=== PATIENT | female | born 1940 | race Caucasian/White ===

== ENCOUNTER → 2018-03-16 | Outpatient (CLI) | payer OTHER ==
[~2018-03-16] MED LIST: IOPAMIDOL (ISOVUE-300) 100 ML BTL ONE
== END ==
LOC: FIMAGING 10:05
PROVIDERS: ATTEND Family Medicine
DX: K57.30 Diverticulosis of large intestine without perforation or abscess without bleeding (principal); K46.9 Unspecified abdominal hernia without obstruction or gangrene; K76.89 Other specified diseases of liver; D25.9 Leiomyoma of uterus, unspecified; D30.00 Benign neoplasm of unspecified kidney
CPT/HCPCS: 74177; Q9967; 74160-PO; 82565-PO

== ENCOUNTER → 2018-04-16 | Outpatient (CLI) | payer OTHER | LOC: BRMIMAGING 10:35 | PROVIDERS: ATTEND Family Medicine | DX: D25.9 Leiomyoma of uterus, unspecified (principal); R93.89 Abnormal findings on diagnostic imaging of other specified body structures | CPT/HCPCS: 76856-PO ==

== ENCOUNTER 2018-07-07 07:03 | Day surgery (SDC) | payer OTHER ==
[2018-07-07] MEDS ORDERED: LR 1,000 ML IV ONE (07:31)
--- NOTE | 2018-07-07 08:01 | PDGENHP ---
History and Physical - Chief Complaint Thickened Endometrial strips - History of Present Illness Jagruti Gordon is a 78 yo pt who I met with in clinic regarding vulvar itching/ irritation and a finding of thickened ES on recent pelvic US - measuring up to 1.2cm. She had not (and still hasn't) had any post-menopausal bleeding. EBX in the clinic returned suggesting fragments of an endometrial polyp - suggested removal to exclude underlying/occult malignancy. History Information - Allergies/Home Medication List Allergies/Adverse Reactions: No Known Allergies Allergy (Verified 07/01/18 11:54) Home Medications: Aspirin 81mg (*) 07/01/18 [Last Taken 07/01/18] Carvedilol BID 07/01/18 [Last Taken 07/07/18] Herbals/Supplements -Info Only 07/01/18 [Last Taken 07/01/18] Losartan Potassium 07/01/18 [Last Taken 07/07/18] Metformin HCl 07/01/18 [Last Taken 07/05/18] Rosuvastatin Calcium 07/01/18 [Last Taken 07/06/18] I have personally reviewed and updated: family history, medical history, social history, surgical history Past Medical History: Hypertension, Dyslipidemia, Diverticulitis, Urinary incontinence - Surgical History Additional surgical history: 2011 knee, x 2 - Family History Additional family history: Sister dx'd with Paget's disease of the vulva this year - Social History Smoking Status: Never smoked Review of Systems Review of Systems: ROS: 10pt was reviewed & negative except for what was stated in HPI & below Physical Exam Physical Exam: Temp Pulse Resp BP Pulse Ox 59 L 14 93 07/07/18 07:47 07/07/18 07:47 07/07/18 07:47 Constitutional: no apparent distress, appears nourished, not in pain Eyes: PERRL Ears, Nose, Mouth, Throat: moist mucous membranes Respiratory: no respiratory distress Assessment & Plan Assessment: Preop: HSC, polypectomy, endometrial sampling - 400mcg misoprostol was to be taken evening prior to surgery. - No need for other abx. - Home from PACU. JAIR
[2018-07-07] MEDS ORDERED: PROMETHAZINE HCL 25 MG/ML INJ IVP PRN (08:29)
[2018-07-07] MEDS ORDERED: HYDROCODONE/APAP 5/325 TAB PO PRN (08:29)
[2018-07-07] MEDS ORDERED: ENALAPRILAT DIHYDRATE 1.25 MG/ML VIAL IVP PRN (08:29)
[2018-07-07] MEDS ORDERED: LR 500 ML IV PRN (08:29)
[2018-07-07] MEDS ORDERED: NALOXONE HCL 0.4 MG/ML INJ IVP PRN (08:29)
[2018-07-07] MEDS ORDERED: ONDANSETRON 4 MG/2 ML VIAL IVP PRN (08:29)
[2018-07-07] MEDS ORDERED: fentaNYL 100 MCG/2 ML INJ IVP PRN (08:29)
[2018-07-07] MEDS ORDERED: DEXAMETHASONE 4 MG/ML VIAL IVP PRN (08:29)
--- NOTE | 2018-07-07 08:29 | PDANEPAE ---
ANE Past Medical History - Cardiovascular History Hx Hypertension: Yes Hx Arrhythmias: Yes Hx Chest Pain: No Hx Coronary Artery / Peripheral Vascular Disease: No Hx CHF / Valvular Disease: Yes Hx Palpitations: No Cardiovascular History Comment: LBBB. CHF. hyperlipidemia. followed by Dr. Brenner at [facility] - Pulmonary History Hx COPD: No Hx Asthma/Reactive Airway Disease: No Hx Recent Upper Respiratory Infection: No Hx Oxygen in Use at Home: Yes O2 in Use at Home (L/minute): 3l at [facility] with cpap Hx Sleep Apnea: Yes Sleep Apnea Screening Result - Last Documented: Positive Pulmonary History Comment: angelica positive uses cpap and o2 - Neurologic History Hx Cerebrovascular Accident: No Hx Seizures: No Hx Dementia: No - Endocrine History Hx Diabetes: Yes Obesity: moderate Endocrine History Comment: type 2 - Renal History Hx Renal Disorders: No Renal History Comment: HX OF BLADDER SURGERY - Liver History Hx Hepatic Disorders: No - Neurological & Psychiatric Hx Hx Neurological and Psychiatric Disorders: No - Cancer History Hx Cancer: No - Congenital Disorder History Hx Congenital Disorders: No - GI History GERD: no Hx Gastrointestinal Disorders: Yes Gastrointestinal History Comment: hx of colonoscopy with polyp removal - Other Health History Other Health History: wears reading glasses. upper partial plate. rash under left arm at times, comes and goes - Chronic Pain History Chronic Pain: No - Surgical History Prior Surgeries: 10/12/13 left knee scope with Ines. LEFT KNEE SCOPE 2010. BLADDER MESH 2011. COLONOSCOPIES ANE Review of Systems Review of Systems: - Exercise capacity METS (RN): 4 METS ANE Patient History - Allergies Allergies/Adverse Reactions: No Known Allergies Allergy (Verified 07/01/18 11:54) - Home Medications Home medications: home medication list seen and reviewed Home Medications: Aspirin 81mg (*) 07/01/18 [Last Taken 07/01/18] Carvedilol BID 07/01/18 [Last Taken 07/07/18] Herbals/Supplements -Info Only 07/01/18 [Last Taken 07/01/18] Losartan Potassium 07/01/18 [Last Taken 07/07/18] Metformin HCl 07/01/18 [Last Taken 07/05/18] Rosuvastatin Calcium 07/01/18 [Last Taken 07/06/18] - NPO status NPO Status: no food or drink >8 hours NPO Since - Liquids (Date): 07/07/18 NPO Since - Liquids (Time): 06:00 NPO Since - Solids (Date): 07/06/18 NPO Since - Solids (Time): 19:00 - Anes Hx Anes Hx: no prior problems - Smoking Hx Smoking Status: Never smoked - Family Anes Hx Family Hx Anesthesia Complications: NONE ANE Labs/Vital Signs - Vital Signs Blood Pressure: 146/70 Heart Rate: 59 Respiratory Rate: 14 O2 Sat (%): 93 Height: 157.48 cm Weight: 95.254 kg ANE Physical Exam - Airway Neck exam: FROM Mallampati Score: Class 2 Mouth exam: dentures - Pulmonary Pulmonary: no respiratory distress, no rales or rhonchi, clear to auscultation - Cardiovascular Cardiovascular: regular rate and rhythym, no murmur, rub, or gallop - ASA Status ASA Status: III ANE Anesthesia Plan Anesthesia Plan: GA w LMA
[2018-07-07] MEDS ORDERED: PROPOFOL 200 MG/20 ML VIAL ONE (08:38)
[2018-07-07] MEDS ORDERED: fentaNYL 100 MCG/2 ML INJ ONE (08:38)
[2018-07-07] MEDS ORDERED: ONDANSETRON 4 MG/2 ML VIAL ONE (08:38)
[2018-07-07] MEDS ORDERED: SILVER NITRATE APPLICATOR 1 APPL TP ONE (09:06)
[2018-07-07] MEDS ORDERED: BUPIVACAINE/EPI 0.25% 30 ML SDV ONE (09:07)
--- NOTE | 2018-07-07 09:44 | POSTANESTH ---
Post Anesthetic Evaluation Cardiovascular Status: Normal, Stable, Similar to Pre-Op Cond Respiratory Status: Normal, Stable, Similar to Pre-op Cond. Level of Consciousness/Mental Status: Can Participate in Eval, Mildly Sleepy, Arousable Pain Control: Adequate, Prn Tx Ordered Nausea/Vomiting Control: Adequate, Prn Tx Ordered Complications Possibly Related to Anesthesia: None Noted
--- NOTE | 2018-07-07 09:59 | SUROPNOTE ---
[facility] Operative Report - Surgery Date of Operation: 07/07/18 Surgeon: Lucho Milton Weaver Hand: None Anesthesiologist: Freedom Meyer Anesthesia: GET(General Endotracheal) Pre-op Diagnosis: Thickened endometrial stripe Post-op Diagnosis: Endometrial polyp Procedure: Diagnostic hysteroscopy, endometrial polypectomy, endometrial sampling Findings: Broad based 2cm polyp anterior, small polyp left cornua Inf/Abcess present in the surg proc area at time of surgery?: No EBL: Minimal Complications: None, Fluid deficit 10cc Specimen(s): Endometrial polyp and endometrial sampling Technique: The patient was taken to the operating room where her identity and planned procedure were confirmed during time-out. The patient was placed under general anesthesia without issue. When anesthesia was found to be adequate, the patient was prepped and draped in the normal sterile fashion in dorsal lithotomy position in Terrance stirrups. No antibiotics were indicated nor given. The patient had voided just prior to OR so straight cath was not necessary. [place] speculum placed in the vagina and anterior lip of the cervix grasped with single-tooth tenaculum. The cervix was carefully serially dilated first to allow the 6mm to allow TruClear hysteroscope. Dilation proceeded easily with no concerns for injury to the uterus. Scope inserted and findings noted as above. The TruClear device was used to remove any polypoid lesions and sample other surrounding endometrium. All instruments were then removed, the tenaculum was removed from the cervix and the tenaculum sites were found to be hemostatic. Sponge, lap, needle, and instrument counts were announced as as correct. I was scrubbed and present for the entire procedure.
[2018-07-07 10:45] VITALS: BP 121/67
== END 2018-07-07 10:45 | disposition home or self-care (01) ==
LOC: FSGY 07:03
PROVIDERS: ATTEND Obstetrics & Gynecology
PROC: 0UDB8ZX Extraction of Endometrium, Via Natural or Artificial Opening Endoscopic, Diagnostic (ICD-10-PCS; principal; 2018-07-07 09:00)
PROC: 0UB98ZX Excision of Uterus, Via Natural or Artificial Opening Endoscopic, Diagnostic (ICD-10-PCS; principal; 2018-07-07 09:00)
DX: N84.0 Polyp of corpus uteri (principal)
CPT/HCPCS: 58558; C1782; J2405; J2704; J3010